=== PATIENT | female | born 1960 | race Caucasian/White ===

== ENCOUNTER → 2017-02-18 | Outpatient (CLI) | payer MEDICARE ==
[~2017-02-18] MED LIST: Aspir 8181 MG PO; Baclofen10 MG PO; CETI5 PO; Complex B-1001 EACH PO; ESTRADIOL42.5 GM TOP; ESZO2 PO; Hair, Skin & N1 EACH PO; MAG GLYCINATE100 MG PO; MAGOXI400 PO; METPRE4DP PO; Omega 3 1,0001 EACH PO; PROBIOTIC1 EAC1 PO; Percocet 5-3251 EACH PO; Vitamin B Comple1 EA PO; WOMEN'S DAILY1 EAC1 PO; [UNRECOGNIZED DRUG - OTHER] PO; [UNRECOGNIZED DRUG - OTHER] PO; [UNRECOGNIZED DRUG - OTHER] SL; [UNRECOGNIZED DRUG - OTHER] SL
[2017-02-18 12:50] LABS: Bilirubin, Urine Neg (Neg); Blood, Urine 2+ (Neg); Glucose Qualitative, Urine Neg (Neg); Ketones, Urine Neg (Neg); Leukocyte Esterase, Urine 1+ (Neg); Nitrite, Urine Neg (Neg); Protein, Urine Neg (Neg); Urobilinogen, Urine NORM (Normal)
[2017-02-18 13:07] LABS: Appearance, Urine Cloudy (Clear); Color, Urine Yellow (P-Yellow)
[2017-02-18 13:09] LABS: Red Blood Cells, Urine 0-2 /hpf (0-2)
[2017-02-18 13:10] LABS: Bacteria Many /hpf; Squamous Epithelial Cells Many /hpf (Few)
== END | disposition home or self-care (01) ==
LOC: LAB 12:33
PROVIDERS: Internal Medicine Hematology & Oncology
DX: R35.0 Frequency of micturition (principal)
CPT/HCPCS: 81001; 87086

== ENCOUNTER 2017-08-28 13:55 | Day surgery (SDC) | payer MEDICARE ==
[~2017-08-28 13:55] MED LIST changes: -Aspir 8181 MG PO; -CETI5 PO; -Complex B-1001 EACH PO; -ESTRADIOL42.5 GM TOP; -ESZO2 PO; -Hair, Skin & N1 EACH PO; -MAG GLYCINATE100 MG PO; -MAGOXI400 PO; -Omega 3 1,0001 EACH PO; -PROBIOTIC1 EAC1 PO; -Vitamin B Comple1 EA PO; -WOMEN'S DAILY1 EAC1 PO; -[UNRECOGNIZED DRUG - OTHER] PO; -[UNRECOGNIZED DRUG - OTHER] PO; -[UNRECOGNIZED DRUG - OTHER] SL; -[UNRECOGNIZED DRUG - OTHER] SL
[2017-08-28] MEDS ORDERED: Hair, Skin & N1 EACH PO (18:14)
[2017-08-28] MEDS ORDERED: Vitamin B Comple1 EA PO (18:15)
[2017-08-28] MEDS ORDERED: CETI5 PO (18:15)
[2017-08-28] MEDS ORDERED: Omega 3 1,0001 EACH PO (18:17)
[2017-08-28] MEDS ORDERED: Aspir 8181 MG PO (18:17)
[2017-08-28] MEDS ORDERED: ESTRADIOL42.5 GM TOP (18:19)
[2017-08-28] MEDS ORDERED: MAGOXI400 PO (18:20)
[2017-08-29] MEDS ORDERED: Complex B-1001 EACH PO (15:43)
[2017-08-29] MEDS ORDERED: MAG GLYCINATE100 MG PO (15:45)
[2017-08-29] MEDS ORDERED: WOMEN'S DAILY1 EAC1 PO (15:46)
[2017-08-29] MEDS ORDERED: ESZO2 PO (15:49)
[2017-08-30] MEDS ORDERED: PROBIOTIC1 EAC1 PO (09:29)
[2017-08-30] MEDS ORDERED: [UNRECOGNIZED DRUG - OTHER] PO (09:30)
[2017-08-30] MEDS ORDERED: [UNRECOGNIZED DRUG - OTHER] SL (09:31)
[2017-08-30] MEDS ORDERED: [UNRECOGNIZED DRUG - OTHER] SL (09:31)
[2017-08-30] MEDS ORDERED: [UNRECOGNIZED DRUG - OTHER] PO (09:32)
== END 2017-08-28 15:18 | disposition home or self-care (01) ==
LOC: ATC 13:55
DX: G35 Multiple sclerosis (principal); J45.909 Unspecified asthma, uncomplicated; Z87.891 Personal history of nicotine dependence
CPT/HCPCS: J2930

== ENCOUNTER 2017-08-29 10:02 | Day surgery (SDC) | payer MEDICARE ==
[~2017-08-29 10:02] MED LIST changes: +Aspir 8181 MG PO; +CETI5 PO; +ESTRADIOL42.5 GM TOP; +Hair, Skin & N1 EACH PO; +MAGOXI400 PO; +Omega 3 1,0001 EACH PO; +Vitamin B Comple1 EA PO
[2017-08-29] MEDS ORDERED: Complex B-1001 EACH PO (15:43)
[2017-08-29] MEDS ORDERED: MAG GLYCINATE100 MG PO (15:45)
[2017-08-29] MEDS ORDERED: WOMEN'S DAILY1 EAC1 PO (15:46)
[2017-08-29] MEDS ORDERED: ESZO2 PO (15:49)
[2017-08-30] MEDS ORDERED: PROBIOTIC1 EAC1 PO (09:29)
[2017-08-30] MEDS ORDERED: [UNRECOGNIZED DRUG - OTHER] PO (09:30)
[2017-08-30] MEDS ORDERED: [UNRECOGNIZED DRUG - OTHER] SL (09:31)
[2017-08-30] MEDS ORDERED: [UNRECOGNIZED DRUG - OTHER] SL (09:31)
[2017-08-30] MEDS ORDERED: [UNRECOGNIZED DRUG - OTHER] PO (09:32)
== END 2017-08-29 22:50 | disposition home or self-care (01) ==
LOC: ATC 10:02
DX: G35 Multiple sclerosis (principal)
CPT/HCPCS: 96365; J2930

== ENCOUNTER → 2018-05-13 | Outpatient (CLI) | payer MEDICARE ==
[~2018-05-13] MED LIST changes: +Complex B-1001 EACH PO; +ESZO2 PO; +MAG GLYCINATE100 MG PO; +PROBIOTIC1 EAC1 PO; +WOMEN'S DAILY1 EAC1 PO; +[UNRECOGNIZED DRUG - OTHER] PO; +[UNRECOGNIZED DRUG - OTHER] PO; +[UNRECOGNIZED DRUG - OTHER] SL; +[UNRECOGNIZED DRUG - OTHER] SL
[2018-05-13 12:40] LABS: Blood, Urine 3+ (Neg); Glucose Qualitative, Urine Neg (Neg); Ketones, Urine Neg (Neg); Leukocyte Esterase, Urine 3+ (Neg); Nitrite, Urine Pos (Neg); Protein, Urine 2+ (Neg); Specific Gravity, Urine 1.015 (1.003-1.022); Urobilinogen, Urine 3+ (Normal)
[2018-05-13 12:52] LABS: Appearance, Urine Cloudy (Clear); Bilirubin, Urine 3+ (Neg); Color, Urine Orange (P-Yellow)
[2018-05-13 12:56] LABS: Bacteria Many /hpf; Squamous Epithelial Cells Few /hpf (Few); Transitional Epithelial Cells Few /hpf (0-Rare); White Blood Cells, Urine TNTC /hpf (0-5)
== END | disposition home or self-care (01) ==
LOC: LAB SHORT 12:36 → LAB 12:36
PROVIDERS: Internal Medicine Hematology & Oncology
DX: R35.0 Frequency of micturition (principal); R53.83 Other fatigue; R53.81 Other malaise
CPT/HCPCS: 81001; 87077; 87086; 87186

== ENCOUNTER → 2018-08-18 | Outpatient (CLI) | payer MEDICARE ==
[2018-08-18 13:29] LABS: Protein, Urine Quantitative 5.9 mg/dL (0.0-11.9)
== END | disposition home or self-care (01) ==
LOC: LAB SHORT 05:45 → LAB 05:45 → LAB FUT 08-12 17:25
PROVIDERS: Internal Medicine Hematology & Oncology
DX: R35.0 Frequency of micturition (principal); R60.9 Edema, unspecified; M19.90 Unspecified osteoarthritis, unspecified site
CPT/HCPCS: 81050; 84156

== ENCOUNTER → 2018-09-19 | Outpatient (CLI) | payer MEDICARE ==
[2018-09-19 15:05] LABS: Source, Urine Clean Catch
[2018-09-19 17:03] LABS: Blood, Urine 2+ (Neg); Glucose Qualitative, Urine Neg (Neg); Ketones, Urine Neg (Neg); Leukocyte Esterase, Urine Neg (Neg); Nitrite, Urine Pos (Neg); Protein, Urine 2+ (Neg); Urobilinogen, Urine 4+ (Normal)
[2018-09-19 17:12] LABS: Appearance, Urine Hazy (Clear); Bilirubin, Urine 3+ (Neg); Color, Urine Brown (P-Yellow)
[2018-09-19 17:14] LABS: Bacteria Many /hpf; Squamous Epithelial Cells Few /hpf (Few); White Blood Cells, Urine 50-100 /hpf (0-5)
== END | disposition home or self-care (01) ==
LOC: LAB SHORT 15:03 → LAB 15:03
PROVIDERS: Internal Medicine Hematology & Oncology
DX: N39.0 Urinary tract infection, site not specified (principal)
CPT/HCPCS: 81001; 87077; 87086; 87186

== ENCOUNTER → 2019-01-31 | Outpatient (CLI) | payer MEDICARE ==
[2019-01-31 18:34] LABS: Appearance, Urine Cloudy (Clear); Bilirubin, Urine Neg (Neg); Blood, Urine 2+ (Neg); Color, Urine Yellow (P-Yellow); Glucose Qualitative, Urine Neg (Neg); Ketones, Urine Neg (Neg); Leukocyte Esterase, Urine 3+ (Neg); Nitrite, Urine Pos (Neg); Protein, Urine 1+ (Neg); Specific Gravity, Urine 1.015 (1.003-1.022); Urobilinogen, Urine NORM (Normal)
[2019-01-31 18:57] LABS: White Blood Cells, Urine TNTC /hpf (0-5)
[2019-01-31 18:58] LABS: Bacteria Many /hpf; Red Blood Cells, Urine 0-2 /hpf (0-2); Squamous Epithelial Cells Few /hpf (Few)
== END | disposition home or self-care (01) ==
LOC: LAB SHORT 16:50 → LAB 16:50
PROVIDERS: Internal Medicine Hematology & Oncology
DX: N39.0 Urinary tract infection, site not specified (principal)
CPT/HCPCS: 81001; 87077; 87086; 87186

== ENCOUNTER → 2019-12-19 | Outpatient (CLI) | payer OTHER ==
[2019-12-20 15:08] LABS: HPV 16 Negative (Negative); HPV 18 Negative (Negative); HPV OTHER HR TYPES Negative (Negative)
== END | disposition home or self-care (01) ==
LOC: LAB SHORT 11:36 → OLS 11:36
PROVIDERS: Obstetrics & Gynecology
DX: Z01.419 Encounter for gynecological examination (general) (routine) without abnormal findings (principal)
CPT/HCPCS: 87624; G0123

== ENCOUNTER → 2019-12-27 | Outpatient (CLI) | payer OTHER ==
[2019-12-27 16:44] LABS: Source, Urine Clean Catch
[2019-12-27 18:10] LABS: Appearance, Urine Clear (Clear); Bilirubin, Urine Neg (Neg); Blood, Urine 2+ (Neg); Color, Urine Yellow (P-Yellow); Glucose Qualitative, Urine Neg (Neg); Ketones, Urine Neg (Neg); Leukocyte Esterase, Urine 1+ (Neg); Nitrite, Urine Neg (Neg); Protein, Urine Neg (Neg); Urobilinogen, Urine NORM (Normal)
[2019-12-27 18:28] LABS: Squamous Epithelial Cells Few /hpf (Few)
[2019-12-27 18:29] LABS: Bacteria Few /hpf; Mucus Light (0-Heavy)
== END ==
LOC: LAB SHORT 16:42 → LAB 16:42
PROVIDERS: Internal Medicine Hematology & Oncology
DX: N30.00 Acute cystitis without hematuria (principal)
CPT/HCPCS: 81001; 87086

== ENCOUNTER → 2020-11-04 | Outpatient (CLI) | payer MEDICARE ==
[2020-11-04 16:08] LABS: Source, Urine Clean Catch
[2020-11-04 16:51] LABS: Appearance, Urine Clear (Clear); Bilirubin, Urine Neg (Neg); Blood, Urine 1+ (Neg); Color, Urine Yellow (P-Yellow); Glucose Qualitative, Urine Neg (Neg); Ketones, Urine Neg (Neg); Leukocyte Esterase, Urine 1+ (Neg); Nitrite, Urine Neg (Neg); Protein, Urine Neg (Neg); Urobilinogen, Urine 1+ (Normal)
[2020-11-04 17:04] LABS: Bacteria Rare /hpf; Red Blood Cells, Urine 0-2 /hpf (0-2); Squamous Epithelial Cells Rare /hpf (Few); White Blood Cells, Urine 0-2 /hpf (0-5)
== END | disposition home or self-care (01) ==
LOC: LAB 16:06 → LAB SHORT 16:06
PROVIDERS: Internal Medicine Hematology & Oncology
DX: G35 Multiple sclerosis (principal); R35.0 Frequency of micturition
CPT/HCPCS: 81001; 87086

== ENCOUNTER → 2021-02-24 | Outpatient (CLI) | payer MEDICARE ==
[2021-02-24 13:01] LABS: Source, Urine Clean Catch
[2021-02-24 13:54] LABS: Appearance, Urine Hazy (Clear); Bilirubin, Urine Neg (Neg); Blood, Urine 3+ (Neg); Color, Urine Yellow (P-Yellow); Glucose Qualitative, Urine Neg (Neg); Ketones, Urine Neg (Neg); Leukocyte Esterase, Urine 3+ (Neg); Nitrite, Urine Neg (Neg); Protein, Urine 3+ (Neg); Urobilinogen, Urine NORM (Normal)
[2021-02-24 14:09] LABS: White Blood Cells, Urine 25-50 /hpf (0-5)
[2021-02-24 14:10] LABS: Amorphous Light (0-Heavy); Bacteria Many /hpf; Calcium Oxalate Crystals Few /hpf; Mucus Light (0-Heavy); Red Blood Cells, Urine 25-50 /hpf (0-2); Squamous Epithelial Cells Few /hpf (Few)
== END | disposition home or self-care (01) ==
LOC: LAB SHORT 11:09
PROVIDERS: Internal Medicine Hematology & Oncology
DX: R35.0 Frequency of micturition (principal)
CPT/HCPCS: 81001; 87077; 87086; 87186

== ENCOUNTER 2021-07-22 15:07 | Emergency (ER) | payer MEDICARE ==
[~2021-07-22] VITALS: Ht 182.9 cm; Wt 113.4 kg
[2021-07-22 16:56] LABS: Source, Urine Clean Catch
[2021-07-22 17:07] LABS: Appearance, Urine Hazy (Clear); Bilirubin, Urine Neg (Neg); Blood, Urine 5+ (Neg); Color, Urine Yellow (P-Yellow); Glucose Qualitative, Urine Neg (Neg); Ketones, Urine Neg (Neg); Leukocyte Esterase, Urine Neg (Neg); Nitrite, Urine Neg (Neg); Protein, Urine Neg (Neg); Urobilinogen, Urine NORM (Normal)
[2021-07-22 17:16] LABS: Bacteria Many /hpf; Squamous Epithelial Cells Many /hpf (Few)
[2021-07-22 17:19] LABS: BASOPHILS ABSOLUTE AUTO 0.05 K/mm3 (0.00-0.23); BASOPHILS PERCENT AUTO 1 % (0-2); EOSINOPHILS ABSOLUTE AUTO 0.18 K/mm3 (0.00-0.68); EOSINOPHILS PERCENT AUTO 2 % (0-6); Hematocrit 42.3 % (33.0-51.0); Hemoglobin 13.4 g/dL (11.5-16.0); IMMATURE GRAN ABSOLUTE AUTO 0.03 K/mm3 (0.00-0.10); IMMATURE GRAN PERCENT AUTO 0 % (0-1); LYMPHOCYTES ABSOLUTE AUTO 2.13 K/mm3 (0.84-5.20); LYMPHOCYTES PERCENT AUTO 20 % (21-46); MONOCYTES ABSOLUTE AUTO 0.86 K/mm3 (0.16-1.47); MONOCYTES PERCENT AUTO 8 % (4-13); Mean Corpuscular HGB 27.5 pg (26.0-34.0); Mean Corpuscular HGB Conc 31.7 g/dL (31.5-36.5); Mean Corpuscular Volume 87 fL (80-100); Mean Platelet Volume 9.6 fL (9.1-12.4); NEUTROPHILS ABSOLUTE AUTO 7.65 K/mm3 (1.96-9.15); NEUTROPHILS PERCENT AUTO 70 % (41-73); Platelet Count 262 K/mm3 (150-400); RDW Coefficient Variation 13.8 % (11.7-14.2); Red Blood Cell Count 4.87 M/mm3 (3.80-5.20)
[2021-07-22 17:38] LABS: Albumin, Blood 3.7 g/dL (3.4-5.0); Albumin/Globulin Ratio 0.9 (0.8-1.8); Bilirubin, Total 0.3 mg/dL (0.1-1.0); Bun/Creatinine Ratio 25.8 (12.0-20.0); Creatinine, Blood 0.74 mg/dL (0.40-1.00); Globulin, Blood 4.3 g/dL (2.2-4.0)
== END 2021-07-22 18:57 | disposition home or self-care (01) ==
LOC: ER 15:07
PROVIDERS: Physician Assistant
DX: N95.0 Postmenopausal bleeding (principal); J45.909 Unspecified asthma, uncomplicated; Z88.5 Allergy status to narcotic agent; Z88.0 Allergy status to penicillin; Z88.8 Allergy status to other drugs, medicaments and biological substances; Z88.1 Allergy status to other antibiotic agents; Z91.041 Radiographic dye allergy status; Z91.012 Allergy to eggs; Z79.899 Other long term (current) drug therapy
CPT/HCPCS: 36415; 76830; 76856; 80053; 81001; 85025; J1885

== ENCOUNTER → 2022-03-18 | Outpatient (CLI) | payer OTHER ==
[~2022-03-18] MED LIST changes: +PROG100 PO
== END | disposition home or self-care (01) ==
LOC: LAB SHORT 08:06 → LAB 08:06 → PLD 08:06
DX: L60.2 Onychogryphosis (principal); B35.1 Tinea unguium
CPT/HCPCS: 88305; 88312

== ENCOUNTER 2022-03-26 19:40 | Observation (INO) | payer MEDICARE ==
[~2022-03-26] VITALS: Ht 182.9 cm; Wt 111.4 kg
[~2022-03-26 19:40] MED LIST changes: -Complex B-1001 EACH PO
[2022-03-26 20:27] LABS: BASOPHILS ABSOLUTE AUTO 0.04 K/mm3 (0.00-0.23); BASOPHILS PERCENT AUTO 0 % (0-2); EOSINOPHILS ABSOLUTE AUTO 0.19 K/mm3 (0.00-0.68); EOSINOPHILS PERCENT AUTO 2 % (0-6); Hematocrit 38.5 % (33.0-51.0); Hemoglobin 12.6 g/dL (11.5-16.0); IMMATURE GRAN ABSOLUTE AUTO 0.04 K/mm3 (0.00-0.10); IMMATURE GRAN PERCENT AUTO 0 % (0-1); LYMPHOCYTES ABSOLUTE AUTO 2.15 K/mm3 (0.84-5.20); LYMPHOCYTES PERCENT AUTO 17 % (21-46); MONOCYTES ABSOLUTE AUTO 1.17 K/mm3 (0.16-1.47); MONOCYTES PERCENT AUTO 9 % (4-13); Mean Corpuscular HGB Conc 32.7 g/dL (31.5-36.5); Mean Corpuscular Volume 86 fL (80-100); Mean Platelet Volume 10.2 fL (9.1-12.4); NEUTROPHILS ABSOLUTE AUTO 9.13 K/mm3 (1.96-9.15); NEUTROPHILS PERCENT AUTO 72 % (41-73); Platelet Count 213 K/mm3 (150-400); RDW Coefficient Variation 14.2 % (11.7-14.2); RDW Standard Deviation 44.8 fL (35.1-46.3); White Blood Cell Count 12.72 K/mm3 (4.00-11.30)
[2022-03-26 20:51] LABS: Albumin, Blood 3.5 g/dL (3.4-5.0); Albumin/Globulin Ratio 0.9 (0.8-1.8); Bilirubin, Total 0.7 mg/dL (0.1-1.0); Bun/Creatinine Ratio 17.3 (12.0-20.0); Calcium, Blood 9.1 mg/dL (8.5-10.1); Creatinine, Blood 0.98 mg/dL (0.40-1.00); Globulin, Blood 3.7 g/dL (2.2-4.0); Potassium, Blood 3.9 mmol/L (3.5-5.5); Total Protein, Blood 7.2 g/dL (6.4-8.2)
[2022-03-26 20:58] LABS: Source, Urine Clean Catch
[2022-03-26 21:13] LABS: Appearance, Urine Clear (Clear); Bilirubin, Urine Neg (Neg); Blood, Urine 3+ (Neg); Color, Urine Yellow (P-Yellow); Glucose Qualitative, Urine Neg (Neg); Ketones, Urine Neg (Neg); Leukocyte Esterase, Urine Neg (Neg); Nitrite, Urine Neg (Neg); Protein, Urine Neg (Neg); Specific Gravity, Urine 1.015 (1.003-1.022); Urobilinogen, Urine NORM (Normal)
[2022-03-26 21:45] LABS: Bacteria Few /hpf; Squamous Epithelial Cells Few /hpf (Few)
[2022-03-26] MEDS ORDERED: LOSA25 PO (23:16)
[2022-03-27 03:23] LABS: C-REACTIVE PROTEIN, EXT RANGE 6.49 mg/dL (0.000-0.300)
[2022-03-27 08:31] LABS: BASOPHILS ABSOLUTE AUTO 0.05 K/mm3 (0.00-0.23); BASOPHILS PERCENT AUTO 1 % (0-2); EOSINOPHILS ABSOLUTE AUTO 0.19 K/mm3 (0.00-0.68); EOSINOPHILS PERCENT AUTO 2 % (0-6); Hematocrit 41.7 % (33.0-51.0); Hemoglobin 13.4 g/dL (11.5-16.0); IMMATURE GRAN ABSOLUTE AUTO 0.06 K/mm3 (0.00-0.10); IMMATURE GRAN PERCENT AUTO 1 % (0-1); LYMPHOCYTES ABSOLUTE AUTO 1.55 K/mm3 (0.84-5.20); LYMPHOCYTES PERCENT AUTO 17 % (21-46); MONOCYTES ABSOLUTE AUTO 0.84 K/mm3 (0.16-1.47); MONOCYTES PERCENT AUTO 9 % (4-13); Mean Corpuscular HGB 27.7 pg (26.0-34.0); Mean Corpuscular HGB Conc 32.1 g/dL (31.5-36.5); Mean Corpuscular Volume 86 fL (80-100); Mean Platelet Volume 9.9 fL (9.1-12.4); NEUTROPHILS ABSOLUTE AUTO 6.27 K/mm3 (1.96-9.15); NEUTROPHILS PERCENT AUTO 70 % (41-73); Platelet Count 189 K/mm3 (150-400); RDW Coefficient Variation 14.4 % (11.7-14.2); RDW Standard Deviation 45.7 fL (35.1-46.3); Red Blood Cell Count 4.84 M/mm3 (3.80-5.20); White Blood Cell Count 8.96 K/mm3 (4.00-11.30)
[2022-03-27 08:49] LABS: Albumin, Blood 3.4 g/dL (3.4-5.0); Albumin/Globulin Ratio 0.9 (0.8-1.8); Bun/Creatinine Ratio 13.9 (12.0-20.0); Calcium, Blood 8.7 mg/dL (8.5-10.1); Creatinine, Blood 0.79 mg/dL (0.40-1.00); Globulin, Blood 3.9 g/dL (2.2-4.0); Potassium, Blood 3.8 mmol/L (3.5-5.5); Total Protein, Blood 7.3 g/dL (6.4-8.2)
--- NOTE | 2022-03-27 15:06 | NUR ---
03/27/22 1506 Be Quezada HISTORY, CHART, MEDICATIONS AND ALLERGIES REVIEWED BEFORE START OF PROCEDURE. PATIENT CONFIRMS NPO STATUS AND AGREES WITH SCHEDULED PROCEDURE. 3-LEAD EKG REVIEWED WITH PHYSICIAN PRIOR TO START OF PROCEDURE. MONITOR INTACT WITH CONTINUOUS PULSE OXIMETRY,CAPNOGRAPHY, 3-LEAD EKG, INTERMITTENT BP. SUPPLEMENTAL O2 TO BE TITRATED THROUGHOUT PROCEDURE TO MAINTAIN O2 SATURATION ABOVE 90%. PATIENT DETERMINED TO BE ASA APPROPRIATE FOR PROPOFOL SEDATION PRIOR TO START OF PROCEDURE BY
--- NOTE | 2022-03-27 17:58 | NUR ---
SHIFT SUMMARY: RETURNED FROM COLONOSCOPY AT ~1630. DENIED NAUSEA. HAVING MILD PAIN IN RLQ, DECLINED OFFERED PAIN MEDS. DR. ELAINE SAW PATIENT (BASED ON FINDINGS FROM [facility]), STARTED ABX. INDEPENDENT IN ROOM. LOOKING FORWARD TO D/C HOME.
--- NOTE | 2022-03-28 06:47 | NUR ---
NO EVENTS OVER NIGHT. COMPLAINS OF PAIN TO RLQ AND REQUESTS TORADOL Q6 AVAILABLE, TORADOL EFFECTIVE AND GIVEN X2. A&O, INDEPENDENT WITH BRP, PLEASANT. MILD ANXIETY REGARDING ANTIBIOTICS BEING EFFECTIVE AND HOW LONG TO TAKE THEM. PT PLANS TO F/U WITH DOCTOR TODAY.
--- NOTE | 2022-03-28 15:06 | NUR ---
PT AWAKE DURING SHIFT REPORT, RESTING QUIETLY. A&O, PLEASANT AND CO-OP. UP INDEPENDENTLY IN AND TO BTM. PT HOPING TO GO HOME EARLY THIS AM. DR ELAINE IN TO SEE PT AND DISCUSS F/U PLAN OF CARE. DR ELAINE TO SEND SCRIPT TO [facility] FOR PT AT D/C. DR GUERRERO JUST IN TO SEE PT AND DISCUSS PLAN OF CARE. D/C ORDERS TO BE PLACED. PT ALREADY DRESSED AND WAITING TO GO HOME. MEDICATED PER EMAR FOR C/O ABD PAIN, MOSTLY AFTER EATING. DIET AND MEDS DISCUSSED WITH PT BY DR ELAINE AND DR GUERRERO. NO FURTHER NEEDS TO PRESENT.
[2022-03-28] MEDS ORDERED: MOXI400 PO (15:53)
[2022-03-28] MEDS ORDERED: PANT20 PO (16:13)
[2022-03-28] MEDS ORDERED: IBUP400 PO (16:13)
--- NOTE | 2022-03-28 16:14 | NUR ---
DISCHARGE SUMMARY: PT EDUCATED ON DISCHARGE PLAN, MEDICATIONS AND DIET INSTRUCTIONS. PT VU. PT ASSISTED WITH PACKING UP BELONGINGS AND ESCORTED TO POV VIA WC BY ALBINO.
== END 2022-03-28 16:12 | disposition home or self-care (01) ==
LOC: ER 19:40 → MEDS 22:52
PROVIDERS: Internal Medicine Gastroenterology; Student in an Organized Health Care Education/Training Program; ADMIT Internal Medicine
PROC: 0DJD8ZZ Inspection of Lower Intestinal Tract, Via Natural or Artificial Opening Endoscopic (ICD-10-PCS; principal; 2022-03-27 14:30)
DX: R10.31 Right lower quadrant pain (principal); K37 Unspecified appendicitis; K63.5 Polyp of colon; K57.30 Diverticulosis of large intestine without perforation or abscess without bleeding; Z87.891 Personal history of nicotine dependence; Z88.0 Allergy status to penicillin; Z88.5 Allergy status to narcotic agent; Z88.8 Allergy status to other drugs, medicaments and biological substances; Z91.041 Radiographic dye allergy status; Z91.012 Allergy to eggs; I10 Essential (primary) hypertension; G35 Multiple sclerosis; J45.909 Unspecified asthma, uncomplicated
CPT/HCPCS: 36415; 74176; 80053; 81001; 83690; 85025; 85651; 86140; 93005; 93010; 96361; 96374; 96375; 99284-25; A9270; J1170; J1650; J1885; J2405; J2704; J3010; J7030; J7120

== ENCOUNTER 2022-03-30 18:05 | Observation (INO) | payer MEDICARE ==
[~2022-03-30] VITALS: Ht 182.9 cm; Wt 106.6 kg
[~2022-03-30 18:05] MED LIST changes: +IBUP400 PO; +LOSA25 PO; +MOXI400 PO; +PANT20 PO
[2022-03-30 19:48] LABS: BASOPHILS ABSOLUTE AUTO 0.04 K/mm3 (0.00-0.23); BASOPHILS PERCENT AUTO 1 % (0-2); EOSINOPHILS PERCENT AUTO 3 % (0-6); Hematocrit 42.8 % (33.0-51.0); Hemoglobin 13.9 g/dL (11.5-16.0); IMMATURE GRAN ABSOLUTE AUTO 0.02 K/mm3 (0.00-0.10); IMMATURE GRAN PERCENT AUTO 0 % (0-1); LYMPHOCYTES ABSOLUTE AUTO 1.64 K/mm3 (0.84-5.20); LYMPHOCYTES PERCENT AUTO 22 % (21-46); MONOCYTES PERCENT AUTO 7 % (4-13); Mean Corpuscular HGB 27.9 pg (26.0-34.0); Mean Corpuscular HGB Conc 32.5 g/dL (31.5-36.5); Mean Corpuscular Volume 86 fL (80-100); Mean Platelet Volume 9.9 fL (9.1-12.4); NEUTROPHILS ABSOLUTE AUTO 4.94 K/mm3 (1.96-9.15); NEUTROPHILS PERCENT AUTO 67 % (41-73); Platelet Count 293 K/mm3 (150-400); RDW Coefficient Variation 13.6 % (11.7-14.2); RDW Standard Deviation 43.3 fL (35.1-46.3); Red Blood Cell Count 4.98 M/mm3 (3.80-5.20); White Blood Cell Count 7.34 K/mm3 (4.00-11.30)
[2022-03-30 20:08] LABS: Albumin, Blood 4.1 g/dL (3.4-5.0); Albumin/Globulin Ratio 0.9 (0.8-1.8); Bilirubin, Total 0.5 mg/dL (0.1-1.0); Bun/Creatinine Ratio 16.6 (12.0-20.0); Creatinine, Blood 0.78 mg/dL (0.40-1.00); Globulin, Blood 4.4 g/dL (2.2-4.0); Potassium, Blood 3.7 mmol/L (3.5-5.5); Total Protein, Blood 8.5 g/dL (6.4-8.2)
[2022-03-30 20:39] LABS: Source, Urine Clean Catch
[2022-03-30 20:44] LABS: Appearance, Urine Clear (Clear); Bilirubin, Urine Neg (Neg); Blood, Urine 1+ (Neg); Color, Urine Yellow (P-Yellow); Glucose Qualitative, Urine Neg (Neg); Ketones, Urine Neg (Neg); Leukocyte Esterase, Urine Neg (Neg); Nitrite, Urine Neg (Neg); Protein, Urine Neg (Neg); Specific Gravity, Urine 1.015 (1.003-1.022); Urobilinogen, Urine NORM (Normal)
[2022-03-30 20:56] LABS: Bacteria Rare /hpf; Red Blood Cells, Urine 0-2 /hpf (0-2); Squamous Epithelial Cells Rare /hpf (Few); White Blood Cells, Urine 0-2 /hpf (0-5)
[2022-03-30] MEDS ORDERED: [UNRECOGNIZED DRUG - OTHER] (21:35)
[2022-03-30] MEDS ORDERED: CLIMARA1 EACH VAG (23:27)
[2022-03-31 04:17] LABS: BASOPHILS ABSOLUTE AUTO 0.03 K/mm3 (0.00-0.23); BASOPHILS PERCENT AUTO 0 % (0-2); EOSINOPHILS ABSOLUTE AUTO 0.19 K/mm3 (0.00-0.68); EOSINOPHILS PERCENT AUTO 3 % (0-6); Hematocrit 36.8 % (33.0-51.0); Hemoglobin 11.9 g/dL (11.5-16.0); IMMATURE GRAN ABSOLUTE AUTO 0.01 K/mm3 (0.00-0.10); IMMATURE GRAN PERCENT AUTO 0 % (0-1); LYMPHOCYTES ABSOLUTE AUTO 2.08 K/mm3 (0.84-5.20); LYMPHOCYTES PERCENT AUTO 28 % (21-46); MONOCYTES ABSOLUTE AUTO 0.61 K/mm3 (0.16-1.47); MONOCYTES PERCENT AUTO 8 % (4-13); Mean Corpuscular HGB 27.8 pg (26.0-34.0); Mean Corpuscular HGB Conc 32.3 g/dL (31.5-36.5); Mean Corpuscular Volume 86 fL (80-100); Mean Platelet Volume 9.8 fL (9.1-12.4); NEUTROPHILS ABSOLUTE AUTO 4.62 K/mm3 (1.96-9.15); NEUTROPHILS PERCENT AUTO 61 % (41-73); Platelet Count 259 K/mm3 (150-400); RDW Coefficient Variation 13.8 % (11.7-14.2); RDW Standard Deviation 43.1 fL (35.1-46.3); Red Blood Cell Count 4.28 M/mm3 (3.80-5.20); White Blood Cell Count 7.54 K/mm3 (4.00-11.30)
[2022-03-31 04:53] LABS: Albumin, Blood 3.2 g/dL (3.4-5.0); Albumin/Globulin Ratio 0.9 (0.8-1.8); Bilirubin, Total 0.6 mg/dL (0.1-1.0); Bun/Creatinine Ratio 16.7 (12.0-20.0); Calcium, Blood 8.7 mg/dL (8.5-10.1); Creatinine, Blood 0.72 mg/dL (0.40-1.00); Globulin, Blood 3.7 g/dL (2.2-4.0); Potassium, Blood 3.7 mmol/L (3.5-5.5); Total Protein, Blood 6.9 g/dL (6.4-8.2)
--- NOTE | 2022-03-31 07:25 | NUR ---
PT VSS T/O NIGHT. PT REP ABD PAIN IMPROVED THIS AM, DENIED N/V. BT HYPO, PT REP NO FLATUS YET. PT NPO SINCE ARRIVING TO FLOOR, IVF CONT PER ORDERS. AWAITING SURGICAL CONSULT. BEDSIDE REPORT GIVEN TO Xavi UMAÑA RN.
--- NOTE | 2022-03-31 15:30 | NUR ---
Pt. is awake in bed and welcomes my visit. Pt. is pleasant, but verbalizes that she has spiritual support from her [facility]. Through theraputic listening Pt. verbalizes her complicated medical journey. Establish rapport as I facilitate a life review. While PtRoyal blackburn declines any prayer, the Pt. did verbalize gratitude for the spiritual care visit, and welcomed this ase certified technician to retun tomorrow.
--- NOTE | 2022-03-31 18:36 | NUR ---
SHIFT SUMMARY NO ACUTE CHANEGS THIS SHIFT. OK'D BY MD TO ADVANCE PATIENTS DIET TOLERATED, HAD REGULAR DIET FOR DINNER AND TOELRATED WELL, DENIES N/V. MEDICATED X1 FOR ABDOMINAL PAIN THIS SHIFT. PATIENT INDEPENDENT IN ROOM AND TO BATHROOM. VOIDING WELL. HAD BM TODAY. PLAN TO CONTNUE IV ABX TID FOR 3 MORE DAYS. CARE MANAGEMENT UNABLE TO GET HOME IV ABX SET UP AND PATIENT IS ONLY ABLE TO DO IV ABX THROUGH ATC BID WHICH IS NOT SUFFICIENT FOR PATIENT AT THIS TIME. CALLS APPROPRIATELY, WILL REPORT TO ONCOMING RN.
--- NOTE | 2022-03-31 19:30 | NUR ---
PT SITTING IN ROOM W/FRIENDS WATCHING [facility] SERVICE. PT REQ TO CALL WHEN SERVICE IS OVER FOR ASSESSMENT.
--- NOTE | 2022-04-01 06:37 | NUR ---
PT VSS T/O NIGHT.BT ACTIVE, PT REP +FLATUS, DENIED N/V. PAIN MGD PER EMAR W/REP RELIEF. NO REACTIONS NOTED AFTER ABX GIVEN, PT DENIED ITCHING. PT INDEP IN ROOM, [place] WELL. PLAN TO COMPLETE 3 DAYS OF IV ABX TX.
--- NOTE | 2022-04-01 08:30 | NUR ---
EATING REGULAR BREAKFAST, TOLERATING WELL, DENIES ANY NAUSEA, REPORTS HAVING 3/10 ABD PAIN, TORADOL GIVEN FOR PAIN.
[2022-04-01] MEDS ORDERED: ERTAPENEM1 G6 IV (13:17)
[2022-04-01] MEDS ORDERED: KETO10 PO (15:20)
--- NOTE | 2022-04-01 18:28 | NUR ---
DC'D HOME EARLIER THIS EVENING, DC INSTRUCTIONS GIVEN, VERBALIZED UNDERSTANDING, IV ON RH LEFT IN FOR [place] ABX INFUSION TOMORROW.
== END 2022-04-01 18:00 | disposition home or self-care (01) ==
LOC: ER 18:05 → SURS 18:06
PROVIDERS: Emergency Medicine; ADMIT Internal Medicine
DX: K35.30 Acute appendicitis with localized peritonitis, without perforation or gangrene (principal); Z88.0 Allergy status to penicillin; Z88.1 Allergy status to other antibiotic agents; Z88.2 Allergy status to sulfonamides; Z88.8 Allergy status to other drugs, medicaments and biological substances; Z91.018 Allergy to other foods; Z79.899 Other long term (current) drug therapy
CPT/HCPCS: 36415; 74176; 80053; 81001; 85025; 96365; 96375; 96376; 99284-25; A9270; C9113; G0378; J1885; J2185; J3010; J7030

== ENCOUNTER 2022-04-02 01:58 | Day surgery (SDC) | payer MEDICARE ==
[~2022-04-02 01:58] MED LIST changes: +CLIMARA1 EACH VAG; +ERTAPENEM1 G6 IV; +KETO10 PO; +[UNRECOGNIZED DRUG - OTHER]
== END 2022-04-02 11:15 | disposition home or self-care (01) ==
LOC: ATC 01:58
DX: K35.80 Unspecified acute appendicitis (principal); Z88.0 Allergy status to penicillin; Z88.1 Allergy status to other antibiotic agents; Z88.2 Allergy status to sulfonamides; Z88.8 Allergy status to other drugs, medicaments and biological substances; Z79.899 Other long term (current) drug therapy
CPT/HCPCS: 96365; J1335

== ENCOUNTER → 2022-07-27 | Outpatient (CLI) | payer MEDICARE ==
[2022-07-27 14:26] LABS: Source, Urine Clean Catch
[2022-07-27 17:09] LABS: Appearance, Urine Clear (Clear); Bilirubin, Urine Neg (Neg); Blood, Urine 1+ (Neg); Color, Urine Amber (P-Yellow); Glucose Qualitative, Urine Neg (Neg); Ketones, Urine Neg (Neg); Leukocyte Esterase, Urine Neg (Neg); Nitrite, Urine Neg (Neg); Protein, Urine 1+ (Neg); Urobilinogen, Urine NORM (Normal)
[2022-07-27 17:17] LABS: Mucus Light (0-Heavy); White Blood Cells, Urine 0-2 /hpf (0-5)
[2022-07-27 17:18] LABS: Bacteria Few /hpf; Squamous Epithelial Cells Rare /hpf (Few)
== END | disposition home or self-care (01) ==
LOC: LAB SHORT 13:49 → LAB 13:49
PROVIDERS: Internal Medicine
DX: N39.0 Urinary tract infection, site not specified (principal)
CPT/HCPCS: 81001

== ENCOUNTER → 2022-08-05 | Outpatient (CLI) | payer MEDICARE ==
[2022-08-05 14:55] LABS: Source, Urine Clean Catch
[2022-08-05 16:54] LABS: Appearance, Urine Clear (Clear); Bilirubin, Urine Neg (Neg); Blood, Urine 2+ (Neg); Color, Urine Amber (P-Yellow); Glucose Qualitative, Urine Neg (Neg); Ketones, Urine Neg (Neg); Leukocyte Esterase, Urine Neg (Neg); Nitrite, Urine Neg (Neg); Protein, Urine Neg (Neg); Urobilinogen, Urine NORM (Normal)
[2022-08-05 17:08] LABS: White Blood Cells, Urine 0-2 /hpf (0-5)
[2022-08-05 17:09] LABS: Bacteria Few /hpf; Squamous Epithelial Cells Few /hpf (Few)
== END | disposition home or self-care (01) ==
LOC: LAB SHORT 14:50 → LAB 14:50
PROVIDERS: Internal Medicine
DX: N39.0 Urinary tract infection, site not specified (principal)
CPT/HCPCS: 81001

== ENCOUNTER 2022-08-20 11:04 | Day surgery (SDC) | payer MEDICARE ==
[~2022-08-20] VITALS: Ht 182.9 cm; Wt 118.7 kg
[2022-08-20] MEDS ORDERED: CALCA500S6 (11:27)
[2022-08-20] MEDS ORDERED: EPIPEN0.3 MG/0.3 (11:27)
[2022-08-20] MEDS ORDERED: ALBU90OI (11:27)
[2022-08-20] MEDS ORDERED: TURMERIC500 M2 (11:28)
[2022-08-20 13:10] VITALS: BP 134/70
== END 2022-08-20 13:00 | disposition home or self-care (01) ==
LOC: ORSCSDS 11:04
PROVIDERS: Student in an Organized Health Care Education/Training Program
PROC: 0DBN8ZX Excision of Sigmoid Colon, Via Natural or Artificial Opening Endoscopic, Diagnostic (ICD-10-PCS; principal; 2022-08-20 12:15)
PROC: 0DBL8ZX Excision of Transverse Colon, Via Natural or Artificial Opening Endoscopic, Diagnostic (ICD-10-PCS; principal; 2022-08-20 12:15)
PROC: 0DBH8ZX Excision of Cecum, Via Natural or Artificial Opening Endoscopic, Diagnostic (ICD-10-PCS; principal; 2022-08-20 12:15)
PROC: 0DBM8ZX Excision of Descending Colon, Via Natural or Artificial Opening Endoscopic, Diagnostic (ICD-10-PCS; principal; 2022-08-20 12:15)
DX: Z12.11 Encounter for screening for malignant neoplasm of colon (principal); Z86.010 Personal history of colon polyps; Z80.0 Family history of malignant neoplasm of digestive organs; D12.0 Benign neoplasm of cecum; K63.5 Polyp of colon; D12.4 Benign neoplasm of descending colon; K57.30 Diverticulosis of large intestine without perforation or abscess without bleeding; Z86.718 Personal history of other venous thrombosis and embolism; I10 Essential (primary) hypertension; G35 Multiple sclerosis; J45.909 Unspecified asthma, uncomplicated; Z79.899 Other long term (current) drug therapy
CPT/HCPCS: 88305; J2704; J7120

== ENCOUNTER → 2023-01-09 | Outpatient (CLI) | payer MEDICARE, OTHER ==
[~2023-01-09] MED LIST changes: +ALBU90OI; +CALCA500S6; +EPIPEN0.3 MG/0.3; +TURMERIC500 M2
== END ==
LOC: LAB 08:36 → LAB SHORT 08:36
DX: R30.0 Dysuria (principal); R35.0 Frequency of micturition; R31.9 Hematuria, unspecified
CPT/HCPCS: 87077; 87086; 87186

== ENCOUNTER → 2023-01-25 | Outpatient (CLI) | payer MEDICARE | END | disposition home or self-care (01) | LOC: LAB SHORT 07:17 → LAB 07:17 | DX: N39.0 Urinary tract infection, site not specified (principal) | CPT/HCPCS: 87086 ==

== ENCOUNTER 2023-02-18 15:34 | Emergency (ER) | payer MEDICARE, OTHER ==
[~2023-02-18] VITALS: Ht 182.9 cm; Wt 106.6 kg
[2023-02-18 15:49] VITALS: BP 189/82
[2023-02-18 16:11] LABS: BASOPHILS ABSOLUTE AUTO 0.06 K/mm3 (0.00-0.23); BASOPHILS PERCENT AUTO 1 % (0-2); EOSINOPHILS ABSOLUTE AUTO 0.22 K/mm3 (0.00-0.68); EOSINOPHILS PERCENT AUTO 3 % (0-6); Hematocrit 44.1 % (33.0-51.0); Hemoglobin 14.1 g/dL (11.5-16.0); IMMATURE GRAN ABSOLUTE AUTO 0.03 K/mm3 (0.00-0.10); IMMATURE GRAN PERCENT AUTO 0 % (0-1); LYMPHOCYTES ABSOLUTE AUTO 2.38 K/mm3 (0.84-5.20); LYMPHOCYTES PERCENT AUTO 31 % (21-46); MONOCYTES ABSOLUTE AUTO 0.48 K/mm3 (0.16-1.47); MONOCYTES PERCENT AUTO 6 % (4-13); Mean Corpuscular HGB 27.7 pg (26.0-34.0); Mean Corpuscular Volume 87 fL (80-100); Mean Platelet Volume 9.8 fL (9.1-12.4); NEUTROPHILS ABSOLUTE AUTO 4.52 K/mm3 (1.96-9.15); NEUTROPHILS PERCENT AUTO 59 % (41-73); Platelet Count 244 K/mm3 (150-400); RDW Coefficient Variation 13.2 % (11.7-14.2); RDW Standard Deviation 42.2 fL (35.1-46.3); Red Blood Cell Count 5.09 M/mm3 (3.80-5.20); White Blood Cell Count 7.69 K/mm3 (4.00-11.30)
[2023-02-18 16:13] LABS: Source, Urine Clean Catch
[2023-02-18 16:21] LABS: Appearance, Urine Clear (Clear); Bilirubin, Urine Neg (Neg); Blood, Urine 2+ (Neg); Color, Urine Yellow (P-Yellow); Glucose Qualitative, Urine Neg (Neg); Ketones, Urine Neg (Neg); Leukocyte Esterase, Urine 1+ (Neg); Nitrite, Urine Neg (Neg); Protein, Urine Neg (Neg); Specific Gravity, Urine 1.015 (1.003-1.022); Urobilinogen, Urine NORM (Normal); pH, Urine 6.5 (5.0-8.0)
[2023-02-18 16:30] LABS: Albumin, Blood 3.9 g/dL (3.4-5.0); Bilirubin, Total 0.4 mg/dL (0.1-1.0); Bun/Creatinine Ratio 11.6 (12.0-20.0); Calcium, Blood 9.1 mg/dL (8.5-10.1); Creatinine, Blood 0.78 mg/dL (0.40-1.00); Potassium, Blood 3.4 mmol/L (3.5-5.5); Total Protein, Blood 7.9 g/dL (6.4-8.2)
[2023-02-18 16:36] LABS: Bacteria Few /hpf; Squamous Epithelial Cells Few /hpf (Few)
== END 2023-02-18 21:16 | disposition home or self-care (01) ==
LOC: ER 15:34
PROVIDERS: Physician Assistant
DX: R10.32 Left lower quadrant pain (principal); Z88.8 Allergy status to other drugs, medicaments and biological substances; J45.909 Unspecified asthma, uncomplicated; Z88.0 Allergy status to penicillin; Z91.018 Allergy to other foods; Z91.012 Allergy to eggs; Z88.5 Allergy status to narcotic agent; Z88.2 Allergy status to sulfonamides; Z88.1 Allergy status to other antibiotic agents; Z79.899 Other long term (current) drug therapy
CPT/HCPCS: 74177; 76830; 80053; 81001; 83735; 85025; 87086; 96374; 96375; 99284-25; J1200; J1885; J2930; Q9967

== ENCOUNTER → 2024-01-02 | Outpatient (CLI) | payer MEDICARE | LOC: LAB SHORT 16:36 → LAB 16:36 | DX: R30.0 Dysuria (principal); R35.0 Frequency of micturition; R31.9 Hematuria, unspecified | CPT/HCPCS: 87077; 87086; 87186 ==

== ENCOUNTER → 2024-06-26 | Outpatient (CLI) | payer MEDICARE, OTHER ==
[2024-06-26 16:20] LABS: Source, Urine Clean Catch
[2024-06-26 19:20] LABS: Appearance, Urine Hazy (Clear); Bilirubin, Urine Neg (Neg); Blood, Urine 2+ (Neg); Color, Urine Yellow (P-Yellow); Glucose Qualitative, Urine Neg (Neg); Ketones, Urine Neg (Neg); Leukocyte Esterase, Urine Neg (Neg); Nitrite, Urine Neg (Neg); Protein, Urine 1+ (Neg); Specific Gravity, Urine 1.015 (1.003-1.022); Urobilinogen, Urine 1+ (Normal)
[2024-06-26 19:32] LABS: Bacteria Few /hpf; Squamous Epithelial Cells Few /hpf (Few)
== END ==
LOC: LAB SHORT 16:19 → LAB 16:19
PROVIDERS: Internal Medicine
DX: N39.0 Urinary tract infection, site not specified (principal)
CPT/HCPCS: 81001

== ENCOUNTER → 2024-08-29 | Outpatient (CLI) | payer MEDICARE, OTHER | END | disposition home or self-care (01) | LOC: LAB 14:00 → LAB SHORT 14:00 | DX: N39.0 Urinary tract infection, site not specified (principal) | CPT/HCPCS: 87086 ==

== ENCOUNTER 2024-09-28 11:02 | Day surgery (SDC) | payer MEDICARE, OTHER ==
[~2024-09-28 11:02] MED LIST changes: +ROMOSOZUMAB-AQQG 210 MG/2.34 ML KIT SC SCH
[2024-09-28] MEDS ORDERED: ALPR.25 PO (11:27)
[2024-09-28] MEDS ORDERED: CALCIUM CARBON500 M1 PO (11:27)
[2024-09-28 11:28] VITALS: BP 167/81
== END 2024-09-28 11:56 | disposition home or self-care (01) ==
LOC: ATC 11:02
DX: M81.0 Age-related osteoporosis without current pathological fracture (principal); J45.909 Unspecified asthma, uncomplicated; I10 Essential (primary) hypertension; Z87.891 Personal history of nicotine dependence; Z79.899 Other long term (current) drug therapy; Z88.0 Allergy status to penicillin; Z88.2 Allergy status to sulfonamides; Z88.5 Allergy status to narcotic agent; Z88.8 Allergy status to other drugs, medicaments and biological substances; Z91.012 Allergy to eggs; Z91.018 Allergy to other foods; Z91.041 Radiographic dye allergy status; Z96.642 Presence of left artificial hip joint
CPT/HCPCS: 96372; J3111

== ENCOUNTER → 2024-10-09 | Outpatient (CLI) | payer MEDICARE, OTHER ==
[~2024-10-09] MED LIST changes: +ALPR.25 PO; +CALCIUM CARBON500 M1 PO; -ROMOSOZUMAB-AQQG 210 MG/2.34 ML KIT SC SCH
== END ==
LOC: LAB SHORT 15:57 → LAB 15:57
DX: N39.0 Urinary tract infection, site not specified (principal)
CPT/HCPCS: 87077; 87086; 87186

== ENCOUNTER → 2024-10-17 | Outpatient (CLI) | payer MEDICARE, OTHER | LOC: LAB SHORT 11:04 → LAB 11:04 | DX: N39.0 Urinary tract infection, site not specified (principal) | CPT/HCPCS: 87086 ==

== ENCOUNTER 2024-10-26 00:42 | Day surgery (SDC) | payer MEDICARE, OTHER ==
[2024-10-26] MEDS ORDERED: ROMOSOZUMAB-AQQG 210 MG/2.34 ML KIT SC SCH (06:00)
[2024-10-26 14:01] VITALS: BP 198/75
[2024-10-26] MEDS ORDERED: CELE200 PO (14:10)
== END 2024-10-26 14:30 | disposition home or self-care (01) ==
LOC: ATC 00:42
DX: M81.0 Age-related osteoporosis without current pathological fracture (principal); J45.909 Unspecified asthma, uncomplicated; I10 Essential (primary) hypertension; Z87.891 Personal history of nicotine dependence; Z88.0 Allergy status to penicillin; Z88.1 Allergy status to other antibiotic agents; Z88.5 Allergy status to narcotic agent; Z88.8 Allergy status to other drugs, medicaments and biological substances; Z91.012 Allergy to eggs; Z91.018 Allergy to other foods; Z91.041 Radiographic dye allergy status; Z96.642 Presence of left artificial hip joint
CPT/HCPCS: 96372; J3111

== ENCOUNTER 2024-10-30 14:05 | Day surgery (SDC) | payer MEDICARE, OTHER ==
[~2024-10-30] VITALS: Wt 119.9 kg
[~2024-10-30 14:05] MED LIST changes: +CELE200 PO
[2024-10-30 14:45] VITALS: BP 145/73
== END 2024-10-30 15:17 | disposition home or self-care (01) ==
LOC: ATC 14:05
DX: N39.0 Urinary tract infection, site not specified (principal); I10 Essential (primary) hypertension; G35 Multiple sclerosis; M81.0 Age-related osteoporosis without current pathological fracture; Z79.899 Other long term (current) drug therapy; Z88.0 Allergy status to penicillin; Z88.1 Allergy status to other antibiotic agents; Z88.5 Allergy status to narcotic agent; Z88.8 Allergy status to other drugs, medicaments and biological substances
CPT/HCPCS: 96365; J1580

== ENCOUNTER → 2024-11-14 | Outpatient (CLI) | payer MEDICARE, OTHER ==
[2024-11-14 11:27] LABS: Source, Urine Clean Catch
[2024-11-14 13:30] LABS: Bilirubin, Urine Neg (Neg); Glucose Qualitative, Urine Neg (Neg); Ketones, Urine Neg (Neg); Leukocyte Esterase, Urine Neg (Neg); Protein, Urine Neg (Neg); Specific Gravity, Urine 1.005 (1.003-1.022); Urobilinogen, Urine NORM (Normal)
[2024-11-14 13:46] LABS: Color, Urine Pale Yellow (P-Yellow); Red Blood Cells, Urine 0-2 /hpf (0-2); White Blood Cells, Urine 0-2 /hpf (0-5)
== END | disposition home or self-care (01) ==
LOC: LAB SHORT 11:25 → LAB 11:25
PROVIDERS: Internal Medicine
DX: N39.0 Urinary tract infection, site not specified (principal)
CPT/HCPCS: 81001; 87086

== ENCOUNTER 2024-11-23 00:45 | Day surgery (SDC) | payer MEDICARE, OTHER ==
[2024-11-23] MEDS ORDERED: ROMOSOZUMAB-AQQG 210 MG/2.34 ML KIT SC SCH (06:00)
[2024-11-23] MEDS ORDERED: Estrace Vagin42.5 GM VAG (08:43)
[2024-11-23] MEDS ORDERED: MELO7.5 PO (08:43)
[2024-11-23 08:54] VITALS: BP 146/68
== END 2024-11-23 08:55 | disposition home or self-care (01) ==
LOC: ATC 00:45
DX: M81.0 Age-related osteoporosis without current pathological fracture (principal); I10 Essential (primary) hypertension; Z79.899 Other long term (current) drug therapy; Z88.8 Allergy status to other drugs, medicaments and biological substances; Z88.0 Allergy status to penicillin; Z88.1 Allergy status to other antibiotic agents; N83.209 Unspecified ovarian cyst, unspecified side
CPT/HCPCS: 76830; 76856; 96372; J3111

== ENCOUNTER 2024-12-25 01:18 | Day surgery (SDC) | payer MEDICARE, OTHER ==
[~2024-12-25 01:18] MED LIST changes: +Estrace Vagin42.5 GM VAG; +MELO7.5 PO; +ROMOSOZUMAB-AQQG 210 MG/2.34 ML KIT SC SCH
[2024-12-25 14:30] VITALS: BP 189/87
== END 2024-12-25 14:38 | disposition home or self-care (01) ==
LOC: ATC 01:18
DX: M81.0 Age-related osteoporosis without current pathological fracture (principal); I10 Essential (primary) hypertension; Z88.0 Allergy status to penicillin; Z88.8 Allergy status to other drugs, medicaments and biological substances; Z88.1 Allergy status to other antibiotic agents; Z91.048 Other nonmedicinal substance allergy status; Z91.018 Allergy to other foods; Z91.0120 Allergy to eggs, unspecified
CPT/HCPCS: 96372; J3111

== ENCOUNTER 2025-01-24 00:43 | Day surgery (SDC) | payer MEDICARE, OTHER ==
[~2025-01-24 00:43] MED LIST changes: -ROMOSOZUMAB-AQQG 210 MG/2.34 ML KIT SC SCH
[2025-01-24] MEDS ORDERED: ROMOSOZUMAB-AQQG 210 MG/2.34 ML KIT SC SCH (06:00)
[2025-01-24 11:05] VITALS: BP 161/81
== END 2025-01-24 11:12 | disposition home or self-care (01) ==
LOC: ATC 00:43
DX: M81.0 Age-related osteoporosis without current pathological fracture (principal); G35.D Multiple sclerosis, unspecified; I12.9 Hypertensive chronic kidney disease with stage 1 through stage 4 chronic kidney disease, or unspecified chronic kidney disease; N18.9 Chronic kidney disease, unspecified; Z79.899 Other long term (current) drug therapy; Z88.0 Allergy status to penicillin; Z88.1 Allergy status to other antibiotic agents; Z88.8 Allergy status to other drugs, medicaments and biological substances; Z91.041 Radiographic dye allergy status
CPT/HCPCS: 96372; J3111